=== PATIENT | male | born 1975 | race Caucasian/White ===

== ENCOUNTER 2018-08-22 17:07 | Emergency (ER) | payer BC ==
[2018-08-22 17:11] VITALS: BMI 26.5
[2018-08-22 17:15] VITALS: BP 117/74; PULSE 77; RESP 18; TEMP 98.6; O2SAT 99
--- NOTE | 2018-08-22 17:24 | C.PDOC ---
History Of Present Illness 43 year old male presents to ED complaining of non-traumatic right knee pain for x2 days. Denies taking any medications today, similar symptoms in the past, fever, chills, weakness, numbness. Time Seen by Provider: 08/22/18 17:18 Chief Complaint (Nursing): Lower Extremity Problem/Injury History Per: Patient History/Exam Limitations: no limitations Onset/Duration Of Symptoms: Days Current Symptoms Are (Timing): Still Present Past Medical History Reviewed: Historical Data, Nursing Documentation, Vital Signs Vital Signs: Last Vital Signs Temp 98.6 F 08/22/18 17:10 Pulse 77 08/22/18 17:10 Resp 18 08/22/18 17:10 BP 117/74 08/22/18 17:10 Pulse Ox 99 08/22/18 17:10 Surgical History: No Surg Hx Family History: States: No Known Family Hx - Social History Hx Alcohol Use: No Hx Substance Use: No - Immunization History Hx Tetanus Toxoid Vaccination: No Hx Influenza Vaccination: No Hx Pneumococcal Vaccination: No Review Of Systems Except As Marked, All Systems Reviewed And Found Negative. Constitutional: Negative for: Fever, Chills Musculoskeletal: Positive for: Other (Right knee pain) Neurological: Negative for: Weakness, Numbness Physical Exam - Physical Exam Appears: Non-toxic, No Acute Distress Skin: Warm, Dry Head: Atraumatic, Normacephalic Eye(s): bilateral: PERRL, EOMI Oral Mucosa: Moist Neck: Supple Extremity: Tenderness (right knee), No Pedal Edema, No Calf Tenderness, Capillary Refill (less 2 sec), No Deformity, Swelling (Swelling to right knee noted. ), Other (No redness, not hot to palpation.) Extremity: Bilateral: Atraumatic Pulses: Left Dorsalis Pedis: Normal, Right Dorsalis Pedis: Normal Neurological/Psych: Oriented x3, Normal Motor, Normal Sensation ED Course And Treatment O2 Sat by Pulse Oximetry: 99 (RA) Pulse Ox Interpretation: Normal - Other Rad right knee X-Ray: Interpreted by Me Interpretation: knee effusion, no fx or dislocation Reassessment Condition: Improved (Reports improvement of pain, ambulates with steady with crutches and knee immobilizer, speaks in full sentences) Medical Decision Making Medical Decision Making: Plan: * X-ray knee * Ibuprofen * Referred to Orthopaedist application technician. Disposition Counseled Patient/Family Regarding: Studies Performed, Diagnosis, Need For Followup, Rx Given - Disposition Referrals: Antwon Zendejas MD [Staff Provider] - [facility] [Outside] Disposition: HOME/ ROUTINE Disposition Time: 18:02 Condition: STABLE Additional Instructions: FOLLOW UP WITH ORTHOPAEDIST NEXT WEEK FOR RE-EVALUATION AND OFFICIAL RIGHT KNEE XRAY REPORT. KNEE IMMOBILIZER AND CRUTCHES FOR WALKING. REST, ICE AND LEG ELEVATION RECOMMENDED. IF SYMPTOMS GET WORSE OR ANY NEW CONCERNING SYMPTOMS DEVELOP RETURN TO ED. 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 - Scribe Statement The provider has reviewed the documentation as recorded by the Scribe Cedric Telly All medical record entries made by the Scribe were at my direction and personally dictated by me. I have reviewed the chart and agree that the record accurately reflects my personal performance of the history, physical exam, medical decision making, and the department course for this patient. I have also personally directed, reviewed, and agree with the discharge instructions and disposition.
--- NOTE | 2018-08-23 10:39 | RAD ---
Date of service: 08/22/2018 PROCEDURE: Right Knee Radiographs. HISTORY: pain COMPARISON: None. FINDINGS: BONES: No acute fracture or destructive bony lesion identified. JOINTS: No subluxation or dislocation appreciated. JOINT EFFUSION: Mild suprapatellar bursa effusion identified. OTHER FINDINGS: None. IMPRESSION: Suprapatellar bursa effusion. No acute fracture or dislocation identified.
== END 2018-08-22 18:24 | disposition home or self-care (01) ==
LOC: C.ER 17:07
DX: M25.461 Effusion, right knee (principal)